=== PATIENT | female | born 2005 | race Caucasian/White ===

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

== ENCOUNTER → 2025-01-22 10:54 | Outpatient (BNVA) | payer MEDICAID, SELFPAY | PROVIDERS: Visit Provider Nurse Practitioner Women's Health | DX: R30.0 Dysuria (principal) | CPT/HCPCS: 81000; 87086 ==

== ENCOUNTER → 2025-03-06 11:16 | Outpatient (BNVA) | payer MEDICAID, SELFPAY | PROVIDERS: Visit Provider Nurse Practitioner Women's Health | DX: Z34.91 Encounter for supervision of normal pregnancy, unspecified, first trimester (principal); Z3A.09 9 weeks gestation of pregnancy | CPT/HCPCS: 76801; 81025; 86850; 86900 ==

== ENCOUNTER → 2025-03-20 10:33 | Outpatient (BNVA) | payer MEDICAID, SELFPAY | PROVIDERS: Visit Provider Nurse Practitioner Women's Health | DX: O26.899 Other specified pregnancy related conditions, unspecified trimester (principal); Z67.91 Unspecified blood type, Rh negative | CPT/HCPCS: 80307; 84315; 84443; 85025; 86592; 86762; 86803; 87086; 87340; 87491; 87591; 87661; 87806 ==

== ENCOUNTER → 2025-04-03 10:24 | Outpatient (BNVA) | payer MEDICAID, SELFPAY | PROVIDERS: Visit Provider Obstetrics & Gynecology | DX: O23.40 Unspecified infection of urinary tract in pregnancy, unspecified trimester (principal); B95.1 Streptococcus, group B, as the cause of diseases classified elsewhere | CPT/HCPCS: 84315; 87086 ==

== ENCOUNTER → 2025-05-01 10:54 | Outpatient (BNVA) | payer MEDICAID, SELFPAY | PROVIDERS: Visit Provider Nurse Practitioner Women's Health | DX: Z34.90 Encounter for supervision of normal pregnancy, unspecified, unspecified trimester (principal) | CPT/HCPCS: 82105; 84315 ==

== ENCOUNTER 2025-05-27 13:44 | Outpatient (CLI) | payer MEDICAID, SELFPAY ==
--- NOTE | 2025-05-27 13:45 | USR_ITS ---
PROCEDURE INFORMATION: Exam: US After First Trimester, Transabdominal Exam date and time: 05/27/2025 2:20 PM Age: 19 years old Clinical indication: Screening exam; Routine US, uterus; Additional info: Z34.90 - encounter for supervision of normal , u. . . , LABS AND CLINICAL REPORTS: Last menstrual period start date: Unknown Gestational age (Established): 20 w 3 d Estimated due date (Established): 10/11/2025 TECHNIQUE: Imaging protocol: Real-time transabdominal obstetrical ultrasound of the maternal pelvis and a second or third trimester with image documentation. COMPARISON: US OB <= 14 weeks fetus [id number] 03/06/2025 11:24 AM FINDINGS: Gestation: Single live intrauterine gestation. heart rate: 170 bpm presentation and position: Vertex Placenta: Unremarkable. No subchorionic bleed. Placenta is posterior/fundal. Amniotic fluid (Qualitative): Amniotic fluid is normal for gestational age. ANATOMY: midline falx: Normal cerebellum: Normal lateral ventricles: Normal cisterna magna: Normal choroid plexus: Normal face: Upper lip is normal heart four-chamber view, heart size and position: Normal heart right ventricular outflow tract: Normal heart left ventricular outflow tract: Normal kidneys: Normal stomach: Normal urinary bladder: Normal spine: Normal Umbilical cord and insertion: Normal upper limbs: Normal lower limbs: Normal external genitalia: Not assessed BIOMETRY: Gestational age (AUA): 21 weeks 4 days Estimated due date (AUA): 10/03/2025 Estimated weight: 431.25 g. EFW by AC, BPD, FL, HC, [place] 1985 Biparietal diameter (BPD): 5.18 cm. EGA (BPD) is 21 w 5 d. 91.1 % percentile Head circumference (HC): 19.46 cm. EGA (HC) is 21 w 5 d. 89.3 % percentile Abdominal circumference (AC): 16.52 cm. EGA (AC) is 21 w 4 d. 79.3 % percentile Femur length (FL): 3.61 cm. EGA (FL) is 21 w 3 d. 76.4 % percentile HC/AC: 1.18. (Normal range: 1.06 - 1.24) FL/HC: 18.55. (Normal range: 17.33 - 20.24) FL/BPD: 69.69 FL/AC: 21.85. (Normal range: 20 - 24) MATERNAL: Uterus: Unremarkable. Cervix: Unremarkable. Cervix is closed. Right ovary/adnexa: Obscured by lack of adequate acoustic window. Left ovary/adnexa: Obscured by lack of adequate acoustic window. Intraperitoneal space: No intraperitoneal free fluid. US/US OB >= 14 weeks fetus [id number] IMPRESSION: Single live intrauterine gestation. Estimated gestational age 21 weeks and 4 days. Unremarkable anatomy.
== END 2025-05-27 13:45 | disposition home or self-care (01) ==
LOC: RAD 13:46
PROVIDERS: PCP Obstetrics & Gynecology; Visit Provider Obstetrics & Gynecology
DX: Z34.92 Encounter for supervision of normal pregnancy, unspecified, second trimester (principal); Z3A.21 21 weeks gestation of pregnancy
CPT/HCPCS: 76805

== ENCOUNTER 2025-06-02 18:10 | Outpatient (CLI) | payer MEDICAID, SELFPAY ==
[2025-06-02 18:13] VITALS: BMI 21.4
[2025-06-02 18:14] VITALS: RESP 16
[2025-06-02 18:27] VITALS: BP 111/60; PULSE 54
[2025-06-02 18:41] VITALS: BP 104/56; PULSE 54
[2025-06-02 18:41] LABS: Glucose Urine UA Negative (Normal); Nitrate Urine Negative (Negative); Specific Gravity, Urine 1.007 (1.005-1.030)
[2025-06-02 18:56] VITALS: BP 107/66; PULSE 62
[2025-06-02 19:10] VITALS: BP 107/62; PULSE 63; RESP 18; TEMP 36.2; O2SAT 98
[2025-06-02 19:11] VITALS: BP 107/62; PULSE 63
== END 2025-06-02 19:18 | disposition home or self-care (01) ==
LOC: OPOB 18:11 → OBGYN 18:11
PROVIDERS: Visit Provider Family Medicine
DX: O26.899 Other specified pregnancy related conditions, unspecified trimester (principal); Z3A.00 Weeks of gestation of pregnancy not specified; R25.2 Cramp and spasm
CPT/HCPCS: 81001; 99211

== ENCOUNTER → 2025-06-05 09:49 | Outpatient (BNVA) | payer MEDICAID, SELFPAY | PROVIDERS: Visit Provider Obstetrics & Gynecology | DX: O26.899 Other specified pregnancy related conditions, unspecified trimester (principal); Z67.91 Unspecified blood type, Rh negative | CPT/HCPCS: 84315 ==

== ENCOUNTER → 2025-06-25 11:18 | Outpatient (BNVA) | payer MEDICAID, SELFPAY | PROVIDERS: Visit Provider Nurse Practitioner Women's Health | DX: Z34.90 Encounter for supervision of normal pregnancy, unspecified, unspecified trimester (principal) | CPT/HCPCS: 81000 ==

== ENCOUNTER → 2025-07-22 09:18 | Outpatient (BNVA) | payer MEDICAID, SELFPAY | PROVIDERS: Visit Provider Obstetrics & Gynecology | DX: O26.899 Other specified pregnancy related conditions, unspecified trimester (principal); Z67.91 Unspecified blood type, Rh negative; Z3A.28 28 weeks gestation of pregnancy | CPT/HCPCS: 82950; 84315; 85025; 86850 ==

== ENCOUNTER 2025-07-25 07:44 | Outpatient (CLI) | payer MEDICAID, SELFPAY ==
[2025-07-25 07:57] VITALS: BP 124/75; PULSE 80
[2025-07-25 08:00] VITALS: RESP 16; BMI 24.5
[2025-07-25 08:17] VITALS: BP 119/69; PULSE 77
[2025-07-25 08:19] LABS: Glucose Urine UA 1+ (Normal); Nitrate Urine Negative (Negative); Specific Gravity, Urine 1.017 (1.005-1.030)
[2025-07-25 08:37] VITALS: BP 116/70; PULSE 68
== END 2025-07-25 09:00 | disposition home or self-care (01) ==
LOC: OPOB 07:45 → OBGYN 07:46
PROVIDERS: Absent Provider Obstetrics & Gynecology; PCP Nurse Practitioner Women's Health; Visit Provider Obstetrics & Gynecology
DX: O26.899 Other specified pregnancy related conditions, unspecified trimester (principal); Z3A.00 Weeks of gestation of pregnancy not specified; R10.9 Unspecified abdominal pain
CPT/HCPCS: 59025; 81001; 87086; 99211

== ENCOUNTER → 2025-08-07 14:01 | Outpatient (BNVA) | payer MEDICAID, SELFPAY | PROVIDERS: PCP Nurse Practitioner Women's Health; Visit Provider Obstetrics & Gynecology | DX: O26.899 Other specified pregnancy related conditions, unspecified trimester (principal); Z67.91 Unspecified blood type, Rh negative | CPT/HCPCS: 84315 ==

== ENCOUNTER → 2025-09-03 08:06 | Outpatient (BNVA) | payer MEDICAID, SELFPAY | PROVIDERS: PCP Nurse Practitioner Women's Health; Visit Provider Obstetrics & Gynecology | DX: Z34.90 Encounter for supervision of normal pregnancy, unspecified, unspecified trimester (principal) | CPT/HCPCS: 84315 ==